=== PATIENT | female | born 1940 | race Caucasian/White ===

== ENCOUNTER 2021-09-25 18:07 | Emergency (ER) | payer MEDICARE, SELFPAY ==
--- NOTE | ~2021-09-25 | XR_ITS ---
EXAMINATION: XR chest 2V DATE: 09/25/2021 18:46 INDICATION: Cough. TECHNIQUE: Frontal and lateral views of the chest were obtained. COMPARISON: None. FINDINGS: There is mild atelectasis in the lower lung zones. There is mild scarring at the lung apice s. No pleural effusion or pneumothorax. Cardiomegaly is noted. There is a left chest wall pacer with leads in the right atrium and right ventricle. There are surgical clips in right axilla. There are mu ltiple chronic compression fractures in the spine. There are changes of vertebroplasty at 3 levels. IMPRESSION: 1. Mild atelectasis in the lower lung zones and mild scarring at the lung apices. 2. Cardiomegaly. Reviewed, dictated and finalized at location A. IMPRESSION: 1. Mild atelectasis in the lower lung zones and mild scarring at the lung apice s. 2. Cardiomegaly.
[2021-09-25 18:14] VITALS: BP 133/69; PULSE 92; RESP 18; TEMP 36.9; O2SAT 95
--- NOTE | 2021-09-25 18:16 | ED.URI ---
HPI - URI/Sore Throat General Chief Complaint: Upper Respiratory Infection Stated Complaint: cough sneeze tight chest Time Seen by Provider: 09/25/21 18:30 Source: patient and RN notes reviewed Mode of arrival: ambulatory Limitations: no limitations History of Present Illness HPI Narrative: 81-year-old female presents the concern for persistent dry cough that started last night keeping her awake at night. Reports tightness in her chest when she is lying down. She also reports nasal congestion and nausea. She denies vomiting, abdominal pain, fevers, body aches, chills, sweats. She is vaccinated for COVID and flu. She did not take any [id number] medications. MD elicited complaint: cough Related Data Home Medications Medication Instructions Recorded Confirmed amlodipine 5 mg PO DAILY 09/25/21 09/25/21 cyclosporine 25 mg PO BID 09/25/21 09/25/21 denosumab [Prolia] mg SUBCUT 09/25/21 09/25/21 famotidine 20 mg PO DAILY 09/25/21 09/25/21 levothyroxine 88 mcg PO DAILY 09/25/21 09/25/21 loratadine 10 mg PO DAILY 09/25/21 09/25/21 metoprolol tartrate 50 mg PO BID 09/25/21 09/25/21 rosuvastatin 5 mg PO DAILY 09/25/21 09/25/21 tenofovir disoproxil fumarate 300 mg PO QAM 09/25/21 09/25/21 [Viread] tramadol 50 mg PO Q6H PRN 09/25/21 09/25/21 warfarin 1 mg PO DAILY 09/25/21 09/25/21 Allergies Allergy/AdvReac Type Severity Reaction Status Date / Time losartan Allergy Unknown Verified 09/25/21 18:24 Penicillins Allergy Swelling Verified 09/25/21 18:24 of Lip/Tongue/Throat Review of Systems Review of Systems: CONSTITUTIONAL: Denies malaise, chills, sweats, or fever. EYES: Denies visual changes, redness, or discharge. ENT: Reports rhinorrhea, congestion. Denies sinus pain, otalgia and sore throat. CARDIOVASCULAR: Denies chest pain, palpitations, or edema. RESPIRATORY: Reports persistent dry cough, chest tightness when lying flat. Denies dyspnea. GASTROINTESTINAL: Denies abdominal pain, vomiting, diarrhea. Reports nausea SKIN: Denies rash or itching. MUSCULOSKELETAL: Denies myalgia. NEUROLOGIC: Denies headache. All systems reviewed & are unremarkable except as noted in HPI and below PMFSH Comments At time of signature, agree with nursing past medical, surgical, social and family history. There is no relevant family history pertinent to the presenting complaint Exam Narrative: GENERAL: Well-appearing, well-nourished, and in no acute distress. HEAD: Normocephalic EYES: PERRLA, conjunctivae clear ENT: Nares clear, clear discharge. Mucous membranes moist. TM pearly aguila with sharp light reflex bilaterally; no tragal tenderness. Oropharynx not erythematous without lesions. Tonsils not enlarged and without exudate, no drooling, no hoarseness, no trismus, uvula midline. NECK: Supple. No lymphadenopathy CHEST: Clear to auscultation, breath sounds equal. No wheezing, rhonchi, rales, or stridor. No respiratory distress, speaks in full sentences. Cough noted HEART: Regular rate and rhythm. No murmur heard. SKIN: Warm, dry, no rash. NEURO: Alert and oriented x3. PSYCH: Normal mood and affect Course Course Emergency Course: Discussed treatment options for acute cough with patient due to her liver transplant. She will follow up with her physician tomorrow to discuss treatment options for her cough. Nonmedicated treatment options given the patient. Patient is aware of diagnosis, understands and agrees to treatment plan. Anticipatory guidance given. Patient agrees to follow-up as directed and is aware of reasons to seek care at the emergency department. Portions of this record may have been created with voice recognition software Level of Care: Express Care Visit Vital Signs Vital signs: Reviewed. MDM - URI/Sore Throat MDM Narrative Medical decision making narrative: Differential diagnosis considered: Benites virus, strep pharyngitis, allergic rhinitis, upper respiratory tract infection, sinusitis, rhinosinusitis, nasophar
== END 2021-09-25 19:05 | disposition home or self-care (01) ==
PROVIDERS: Emergency Provider Nurse Practitioner; PCP Internal Medicine
DX: R05.9 Cough, unspecified (principal); E78.00 Pure hypercholesterolemia, unspecified; I10 Essential (primary) hypertension; Z94.4 Liver transplant status; Z95.0 Presence of cardiac pacemaker
CPT/HCPCS: 71046; 99213; G0463